=== PATIENT | female | born 1995 | race African-American/Black ===

== ENCOUNTER 2019-06-22 17:01 | Emergency (ER) | payer OTHER ==
[2019-06-22 17:08] VITALS: TEMP 98; BMI 22.6
--- NOTE | 2019-06-22 17:16 | PDOC ---
History of Present Illness - General Chief Complaint: Vaginal Bleeding Stated Complaint: VAGINAL BLEEDING Time Seen by Provider: 06/22/19 17:15 - History of Present Illness Initial Comments: 06/22/19 21:56 23 year old woman A1 with a history of sickle cell trait who presents with vaginal bleeding with out clot that started just prior to arrival. The patient reports that she is approx 10 weeks with LNMP 03/20/2019. She got her pergnancy done IVF due to her partner also being a sickle cell trait carrier. She denies any abdominal pain, nausea, vomiting, back pain or fever. SHe reports that after the initial bleeding she has some spotting. OBGYN: [facility] GENERAL/CONSTITUTIONAL: No fever or chills. No weakness. HEAD, EYES, EARS, NOSE AND THROAT: No change in vision. No ear pain or discharge. No sore throat. CARDIOVASCULAR: No chest pain or shortness of breath RESPIRATORY: No cough, wheezing, or hemoptysis. GASTROINTESTINAL: No nausea, vomiting, diarrhea or constipation. GENITOURINARY: No dysuria, frequency, or change in urination. MUSCULOSKELETAL: No joint or muscle swelling or pain. No neck or back pain. SKIN: No rash NEUROLOGIC: No headache, vertigo, loss of consciousness, or change in strength/ sensation. . PE GENERAL: Awake, alert, and fully oriented, in no acute distress HEAD: No signs of trauma, normocephalic, atraumatic EYES: EOMI, sclera anicteric, conjunctiva clear ENT: oropharynx clear without exudates. Moist mucosa NECK: Normal ROM, supple LUNGS: No distress, speaks full sentences, clear to auscultation bilaterally HEART: Regular rate and rhythm, normal S1 and S2, no murmurs, rubs or gallops, peripheral pulses normal and equal bilaterally. ABDOMEN: Soft, nontender, normoactive bowel sounds. No guarding, no rebound. No masses EXTREMITIES : Normal inspection, Normal range of motion, no edema. No clubbing or cyanosis. NEUROLOGICAL: Cranial nerves II through XII grossly intact. Normal speech, normal gait, no focal sensorimotor deficits SKIN: Warm, Dry, normal turgor, no rashes or lesions noted PELVIC: closed cervical os, blood in vaginal vault, no CMT MDM DDX including but not limited to: threatened abrotion vs complete W/U: - cbc, cmp, beta, tvus ED Course: labs wnl tvus with single viable recommend patient see OBGYN on monday, they have upcoming appointemnt with OBGYN next week informed to return to ED if OBGYN appointment cannot be made. Patient agress to plan, given strict return precuations Shirley Villa, PGY2 Emergency Medicine Past History - Past Medical History Allergies/Adverse Reactions: Allergies Allergy/AdvReac Type Severity Reaction Status Date / Time No Known Allergies Allergy Verified 06/22/19 20:19 Home Medications: Ambulatory Orders No122/Iron/Folic Acid [ Multi Tablet] 1 each PO DAILY 06/22/19 COPD: No - Suicide/Smoking/Psychosocial Hx Smoking History: Never smoked *Physical Exam - Vital Signs Last Vital Signs Temp Pulse Resp BP Pulse Ox 98 F 113 H 20 115/76 99 06/22/19 17:05 06/22/19 17:05 06/22/19 17:05 06/22/19 17:05 06/22/19 17:05 Vital Signs - Vital Signs #1 Pulse Rate: 88 ED Treatment Course - LABORATORY CBC & Chemistry Diagram: 06/22/19 18:01 06/22/19 18:01 *DC/Admit/Observation/Transfer Diagnosis at time of Disposition: Vaginal bleeding - Discharge Dispostion Disposition: HOME Condition at time of disposition: Stable Decision to Admit order: No - Referrals Referrals: Marky Ratliff MD [Primary Care Provider] - - Patient Instructions Printed Discharge Instructions: DI for Vaginal Bleeding During Additional Instructions: You were seen in the ED for complaints of vaginal bleeding in In the ED you were evaluated with labwork and imaging. Your results were showed an intrauterine aged 10 weeks 5 days with HR of 164bpm. There does not appear to be an acute need for immediate hospitalization. You are advised to follow up with your Primary Care Physician within 1 week. Please follow up with your OBGYN in 48 hours for repeat bloodwork Return to the ED immediately if you experience worsening vaginal bleeding, nausea, vomiting, abdominal pain, chest pain or shortness of breath. - Post Discharge Activity
--- NOTE | 2019-06-22 17:17 | PDOC ---
Attending Attestation - Resident Resident Name: Shirley Villa - ED Attending Attestation I have performed the following: I have examined & evaluated the patient, The case was reviewed & discussed with the resident, I agree w/resident's findings & plan, Exceptions are as noted - HPI HPI: 06/22/19 18:31 23-year-old female, g 2 P0, at 10 weeks gestation by LMP presents with vaginal bleeding. Patient denies fevers/chills/abdominal pain/nausea/vomiting. - Physicial Exam PE: 06/22/19 18:32 Patient is awake and alert, well-nourished, in no distress Normocephalic, atraumatic PERRLA, EOMI CTA RRR Abdomen soft, nontender, nondistended - Medical Decision Making 06/22/19 18:34 Patient is a 23-year-old female, , 10 weeks gestation via IVF presents with an episode of vaginal bleeding followed by vaginal spotting. Patient is hemodynamically stable. Serial abdominal exams reveal no focal tenderness. Will rule out ectopic with beta-hCG and transvaginal ultrasound. Will obtain type and screen for age status. Will reassess
[2019-06-22 18:30] LABS: BASO % 0.3 % (0-2.0); EOS % 0.6 % (0-4.5); HEMATOCRIT 40.2 % (32.4-45.2); HEMOGLOBIN 13.6 GM/dL (10.7-15.3); LYMPH % 24.2 % (8-40); MCH 29.5 pg (25.7-33.7); MCHC 33.9 g/dl (32.0-36.0); MEAN CELL VOLUME 87.1 fl (80-96); MEAN PLT VOLUME 8.5 fl (7.5-11.1); MONO % 5.8 % (3.8-10.2); NEUT % 69.1 % (42.8-82.8); PLATELET COUNT 308 K/MM3 (134-434); RBC 4.61 M/mm3 (3.60-5.2); RDW 13.9 % (11.6-15.6); WHITE BLOOD COUNT 7.2 K/mm3 (4.0-10.0)
[2019-06-22 18:52] LABS: ALBUMIN 3.7 g/dl (3.4-5.0); BILIRUBIN,TOTAL 0.2 mg/dL (0.2-1); BLOOD UREA NITROGEN 12.4 mg/dL (7-18); CALCIUM 10.1 mg/dL (8.5-10.1); CREATININE 0.6 mg/dL (0.55-1.3); TOT PROT 7.9 g/dl (6.4-8.2)
[2019-06-22 20:19] LABS: EPI CELLS 5.2 /HPF (0-5/HPF); HYALINE CASTS 2 /lpf (0-8); URINE APPEARANCE CLOUDY; URINE BACTERIA 37.1 /hpf (NEGATIVE); URINE BILIRUBIN NEGATIVE (NEGATIVE); URINE COLOR YELLOW; URINE GLUCOSE (UA) NEGATIVE (NEGATIVE); URINE KETONE 1+ (NEGATIVE); URINE LEUK ESTERASE NEGATIVE (NEGATIVE); URINE NITRITE NEGATIVE (NEGATIVE); URINE PROTEIN NEGATIVE (NEGATIVE); URINE RBC 1 /hpf (0-4); URINE UROBILINOGEN 0.2 mg/dL (0.2-1.0); URINE WBC 1 /hpf (0-5)
[2019-06-22 22:17] VITALS: BP 122/73
[2019-06-23 00:03] VITALS: PULSE 88
== END 2019-06-22 22:17 | disposition home or self-care (01) ==
LOC: JER 17:01
DX: O26.891 Other specified pregnancy related conditions, first trimester (principal); O20.8 Other hemorrhage in early pregnancy; O99.011 Anemia complicating pregnancy, first trimester; D57.3 Sickle-cell trait; Z3A.10 10 weeks gestation of pregnancy
CPT/HCPCS: 36415; 76801-TC; 80053; 81003; 84702; 85025; 86850; 86900; 86901; 99282-25

== ENCOUNTER → 2019-08-21 | Day surgery (SDC) | payer OTHER ==
--- NOTE | 2019-08-22 15:28 | PATH ---
Cytology Non-Gynecological Report Patient Name: GUANAKITO LAURENT [facility]. Rec. #: [id number] /Age/Gender: 1995 (Age: 23) / F Account: [id number] Location: RADIOLOGY INTER Taken: 08/21/2019 Received: 08/21/2019 Reported: 08/22/2019 Physicians: Blanka Frausto M.D. Specimen(s) Received LEFT LOBE THYROID FNA Clinical History Left lobe, 2.09 x 0.63 x 1.14 cm Final Diagnosis THYROID, LEFT LOBE, FINE NEEDLE ASPIRATION: SATISFACTORY FOR EVALUATION. BETHESDA CLASS II: BENIGN. CYTOLOGIC FINDINGS ARE CONSISTENT WITH A BENIGN FOLLICULAR NODULE. SMALL FOLLICULAR CELLS IN A BACKGROUND OF ABUNDANT COLLOID AND FEW MACROPHAGES PRESENT. Electronically Signed Francia Mcdonough M.D. Gross Description Received are eight direct smears, four of which are air-dried and Diff-Quik stained, and four of which are alcohol fixed and Pap stained. Also received is 20 ml of bloody formalin from which one cellblock is prepared.
== END | disposition home or self-care (01) ==
LOC: JRADIR 09:31
PROVIDERS: ATTEND Otolaryngology Facial Plastic Surgery
PROC: 0G9G3ZX Drainage of Left Thyroid Gland Lobe, Percutaneous Approach, Diagnostic (ICD-10-PCS; principal; 2019-08-21)
DX: E04.1 Nontoxic single thyroid nodule (principal)
CPT/HCPCS: 76942

== ENCOUNTER 2019-11-26 02:10 | Inpatient (IN) | payer OTHER ==
[~2019-11-26 02:10] MED LIST: ELECTROLYTE-148 SOLN 1,000 ML IV ONE
[2019-11-26] MEDS ORDERED: ELECTROLYTE-148 SOLN 1,000 ML IV SCH (04:00)
[2019-11-26] MEDS ORDERED: TERBUTALINE SULFATE 1 MG/1 ML VIAL SQ SCH (05:45)
[2019-11-26] MEDS ORDERED: TERBUTALINE SULFATE 1 MG/1 ML VIAL SQ ONE (05:46)
[2019-11-26] MEDS: TERBUTALINE SULFATE 1 MG/1 ML VIAL SQ SCH ×2 (05:50→06:30)
[2019-11-26] MEDS ORDERED: BETAMET ACET/BETAMET NA PH 30 MG/5 ML VIAL IM ONE (09:32)
--- NOTE | 2019-11-26 09:36 | PN ---
Ante-Partal Exam - Subjective Subjective: Pt came in for contractions was given terb x 2 no rom no bleeding improved with hydrations SP BPP 8/ Vital Signs: Vital Signs Temperature 98.0 F 11/26/19 08:14 Pulse Rate 120 H 11/26/19 08:14 Respiratory Rate 11/26/19 08:14 Blood Pressure 116/69 11/26/19 08:14 O2 Sat by Pulse Oximetry (%) Bleeding: No Headache: No Visual changes: No Right upper quadrant pain: No - Contractions Contractions: Yes Regularity: Irritability Monitor Mode: External - Exam during Labor Variability: Moderate Heart Rate Location: [facility] Category: I Exam: Vaginal Dilatation (cm): ft Amniotic Membrane Status: Intact Amniotic Fluid: Clear Presentation: Vertex - Intrapartum Hemorrhage Risk Risk Score: 0 Risk Level: Low Risk - Assessment/Plan Assessment/Plan: IUP at 33 week PTL BPP 8 tacycardia after terbutaline 3 hours ago Plan Admit for observation cont moonitoring celestone 12.5 mg will repeat exam regular diet
[2019-11-26] MEDS: ELECTROLYTE-148 SOLN 1,000 ML IV SCH ×2 (10:45→22:30)
[2019-11-26] MEDS ORDERED: MAGNESIUM 4GM/H20 - 4 GM/100 ML IVPB IVPB ONE (11:01)
[2019-11-26] MEDS ORDERED: AMPICILLIN - 2 GM in SODIUM CHLORIDE 100 ML IVPB ONE (11:01)
--- NOTE | 2019-11-26 11:05 | HP ---
Past Medical History - Primary Care Physician PCP:: Makeda Joe - Admission Chief Complaint: labor History of Present Illness: 24 yo EDC EGA 33 week admitted for labor no rom no bleeding no abd pian Limitations to Obtaining History: No Limitations - Past Medical History ...: 1 ...Para: 0 ...Term: 0 ...: 0 ...Spon : 0 ...Induced : 0 ...LMP: 03/20/19 ... Weeks Gestation by Dates: 33.1 ...EDC by Dates: 01/14/20 - Past Surgical History Past Surgical History: Yes: None Hx Myomectomy: No Hx Transabdominal Cerclage: No - Smoking History Smoking history: Never smoked - Alcohol/Substance Use Hx Alcohol Use: No History of Substance Use: reports: None - Social History Usual Living Arrangement: Yes: With Spouse History of Recent Travel: No Home Medications - Allergies Allergies/Adverse Reactions: Allergies Allergy/AdvReac Type Severity Reaction Status Date / Time No Known Allergies Allergy Verified 11/26/19 05:01 - Home Medications Home Medications: Ambulatory Orders Vitamins (Sjr) - 1 tab PO DAILY 11/26/19 Review of Systems - Review of Systems Constitutional: reports: No Symptoms Eyes: reports: No Symptoms HENT: reports: No Symptoms Neck: reports: No Symptoms Cardiovascular: reports: No Symptoms Respiratory: reports: No Symptoms Gastrointestinal: reports: Abdominal Pain Genitourinary: reports: No Symptoms Breasts: reports: No Symptoms Reported Musculoskeletal: reports: No Symptoms Integumentary: reports: No Symptoms Neurological: reports: No Symptoms Endocrine: reports: No Symptoms Hematology/Lymphatic: reports: No Symptoms Psychiatric: reports: No Symptoms Physical Exam - Maternity Vital Signs: Vital Signs Temperature 98.0 F 11/26/19 09:25 Pulse Rate 111 H 11/26/19 09:25 Respiratory Rate 20 11/26/19 09:25 Blood Pressure 105/64 11/26/19 09:25 O2 Sat by Pulse Oximetry (%) Problem List - Problems (1) labor in second trimester with delivery in third trimester Code(s): O60.13X0 - LABOR SECOND TRI W DELIVERY THIRD TRI, UNSP Assessment/Plan labor 33 weeks Plan IV Antibiotic EFM Celestone in 24 hours IV hydration [id number]
[2019-11-26] MEDS ORDERED: MAGNESIUM 4GM/H20 - 4 GM/100 ML IVPB IVPB SCH (11:15)
[2019-11-26] MEDS: MAGNESIUM SULFATE 20GM/500ML - 20 GM/500 ML INFUS.BAG IVPB SCH ×2 (11:35→22:30)
[2019-11-26 11:39] LABS: BASO % 0.2 % (0-2.0); EOS % 0.1 % (0-4.5); HEMATOCRIT 32.6 % (32.4-45.2); HEMOGLOBIN 11.2 GM/dL (10.7-15.3); LYMPH % 11.9 % (8-40); MCH 31.8 pg (25.7-33.7); MCHC 34.3 g/dl (32.0-36.0); MEAN CELL VOLUME 92.7 fl (80-96); MEAN PLT VOLUME 8.9 fl (7.5-11.1); MONO % 3.5 % (3.8-10.2); NEUT % 84.3 % (42.8-82.8); PLATELET COUNT 229 K/MM3 (134-434); RBC 3.52 M/mm3 (3.60-5.2); WHITE BLOOD COUNT 8.3 K/mm3 (4.0-10.0)
[2019-11-26 11:50] LABS: INR 0.94 (0.83-1.09); PROTHROMBIN TIME (PATIENT) 11.1 SEC (9.7-13.0)
[2019-11-26] MEDS ORDERED: AMPICILLIN SODIUM 2 GM VIAL ONE (11:50)
[2019-11-26 11:52] LABS: ACTIVATED PTT 29.9 SECONDS (25.2-36.5)
[2019-11-26 12:01] LABS: CALCIUM 8.5 mg/dL (8.5-10.1); CREATININE 0.6 mg/dL (0.55-1.3); MAGNESIUM 3.5 mg/dL (1.8-2.4); POTASSIUM 3.8 mmol/L (3.5-5.1)
[2019-11-26 12:13] LABS: BLOOD UREA NITROGEN 2.8 mg/dL (7-18)
[2019-11-26 12:20] VITALS: BMI 31.1
[2019-11-26 13:37] LABS: URINE APPEARANCE CLOUDY; URINE BILIRUBIN NEGATIVE (NEGATIVE); URINE COLOR YELLOW; URINE GLUCOSE (UA) NEGATIVE (NEGATIVE); URINE KETONE NEGATIVE (NEGATIVE); URINE LEUK ESTERASE NEGATIVE (NEGATIVE); URINE NITRITE NEGATIVE (NEGATIVE); URINE PROTEIN NEGATIVE (NEGATIVE); URINE UROBILINOGEN 0.2 mg/dL (0.2-1.0)
[2019-11-26] MEDS ORDERED: AMPICILLIN SODIUM 1 GM VIAL ONE ×2 (15:26→19:46)
[2019-11-26] MEDS ORDERED: SODIUM CHLORIDE 100 ML IVPB ONE (15:26)
[2019-11-26] MEDS: AMPICILLIN - 1 GM in SODIUM CHLORIDE 100 ML IVPB SCH ×2 (15:48→19:50)
[2019-11-26] MEDS ORDERED: MAGNESIUM SULFATE 20GM/500ML - 20 GM/500 ML INFUS.BAG ONE (22:27)
[2019-11-27] MEDS ORDERED: AMPICILLIN SODIUM 1 GM VIAL ONE ×3 (00:14→08:25)
[2019-11-27] MEDS: AMPICILLIN - 1 GM in SODIUM CHLORIDE 100 ML IVPB SCH ×4 (00:15→17:29)
--- NOTE | 2019-11-27 07:41 | PN ---
Progress Note (short form) - Note Progress Note: 24 yo EDC EGA 33 week admitted for labor. She's on Magnesium sulfate and has received one dose of Betamethasone. She's not in discomfort. FHR : Reassuring [place] : + contractions VE : No cervical change A/ P : 33 weeks gestation contractions Continue Magnesium sulfate Second dose of Betamethasone pending. Continue observation F/U Magnesium level
[2019-11-27] MEDS ORDERED: BETAMET ACET/BETAMET NA PH 30 MG/5 ML VIAL IM ONE (09:45)
[2019-11-27] MEDS ORDERED: BETAMET ACET/BETAMET NA PH 30 MG/5 ML VIAL ONE (09:55)
[2019-11-27] MEDS ORDERED: MAGNESIUM SULFATE 20GM/500ML - 20 GM/500 ML INFUS.BAG ONE (10:15)
[2019-11-27] MEDS: MAGNESIUM SULFATE 20GM/500ML - 20 GM/500 ML INFUS.BAG IVPB SCH (10:30)
--- NOTE | 2019-11-27 10:52 | PN ---
Ante-Partal Exam - Subjective Vital Signs: Vital Signs Temperature 98.3 F 11/27/19 09:00 Pulse Rate 90 11/27/19 09:00 Respiratory Rate 18 11/27/19 09:00 Blood Pressure 108/63 11/27/19 09:00 O2 Sat by Pulse Oximetry (%) Bleeding: No Headache: No Visual changes: No Right upper quadrant pain: No - Contractions Contractions: Yes Regularity: Irregular - Exam during Labor Category: I - Intrapartum Hemorrhage Risk Risk Score: 0 Risk Level: Low Risk - Assessment/Plan Assessment/Plan: IUP at 33 wek contraction SP mgso4 Plan DC mgso4 DC amp observe in LD then transfer to Floor for observation
[2019-11-27] MEDS: ELECTROLYTE-148 SOLN 1,000 ML IV SCH (13:11)
--- NOTE | 2019-11-28 09:05 | PN ---
Ante-Partal Exam - Subjective Subjective: Pt found lying in bed doing well no rom no bleeding no pain efm irritability Vital Signs: Vital Signs Temperature 98.0 F 11/28/19 08:06 Pulse Rate 78 11/28/19 08:06 Respiratory Rate 20 11/28/19 08:06 Blood Pressure 108/60 11/28/19 08:06 O2 Sat by Pulse Oximetry (%) Bleeding: No Headache: No Visual changes: No Right upper quadrant pain: No - Contractions Contractions: Yes Regularity: Irritability Intensity: Unaware Monitor Mode: External - Exam during Labor Variability: Moderate Heart Rate Location: [facility] Monitor Decelerations: None Exam: Vaginal (checked earlier and found to be closed) Amniotic Membrane Status: Intact Presentation: Vertex - Assessment/Plan Assessment/Plan: contractions iup at 33 weeks IVF Plan transfer to antepartum if no change
[2019-11-28] MEDS ORDERED: ONDANSETRON 4 MG/2 ML VIAL IVPUSH PRN (09:32)
[2019-11-28] MEDS: ELECTROLYTE-148 SOLN 1,000 ML IV SCH (09:40)
[2019-11-28] MEDS ORDERED: ACETAMINOPHEN 1000 MG/100 ML VIAL (NON FORMULARY) IVPB ONE (09:40)
--- NOTE | 2019-11-28 09:41 | PN ---
Ante-Partal Exam - Subjective Subjective: Pt with chest pain no SOB no leg pain Vital Signs: Vital Signs Temperature 98.0 F 11/28/19 08:06 Pulse Rate 81 11/28/19 08:50 Respiratory Rate 20 11/28/19 08:50 Blood Pressure 115/60 11/28/19 08:50 O2 Sat by Pulse Oximetry (%) 95 11/28/19 09:00 Bleeding: No Headache: No Visual changes: No Right upper quadrant pain: No - Contractions Contractions: Yes Regularity: Irritability Monitor Mode: External - Exam during Labor Variability: Moderate Category: I Monitor Decelerations: None Amniotic Membrane Status: Intact - Intrapartum Hemorrhage Risk Risk Score: 0 Risk Level: Low Risk - Assessment/Plan Assessment/Plan: IUP at 33 weeks contractions mid sternal chest pain with no sOB Plan Tylenol IVF IVF O2 cbc Chem EKG will call hospitalist if not improved
[2019-11-28 11:08] LABS: BASO % 0.3 % (0-2.0); HEMOGLOBIN 11.1 GM/dL (10.7-15.3); LYMPH % 10.1 % (8-40); MCH 31.3 pg (25.7-33.7); MCHC 33.6 g/dl (32.0-36.0); MEAN CELL VOLUME 93.4 fl (80-96); MEAN PLT VOLUME 9.2 fl (7.5-11.1); MONO % 6.1 % (3.8-10.2); NEUT % 83.5 % (42.8-82.8); PLATELET COUNT 228 K/MM3 (134-434); RBC 3.53 M/mm3 (3.60-5.2); WHITE BLOOD COUNT 12.8 K/mm3 (4.0-10.0)
[2019-11-28 11:34] LABS: BLOOD UREA NITROGEN 7.4 mg/dL (7-18); CALCIUM 8.9 mg/dL (8.5-10.1); CREATININE 0.6 mg/dL (0.55-1.3)
--- NOTE | 2019-11-28 13:41 | EKG ---
Test Reason : Blood Pressure : / mmHG Vent. Rate : 074 BPM Atrial Rate : 074 BPM P-R Int : 126 ms QRS Dur : 086 ms QT Int : 382 ms P-R-T Axes : 036 053 018 degrees QTc Int : 424 ms NORMAL SINUS RHYTHM WITH SINUS ARRHYTHMIA NORMAL ECG NO PREVIOUS ECGS AVAILABLE Confirmed by GLENNY FIERRO MD ([id number]) on 11/28/2019 1:41:04 PM Referred By: Confirmed By:GLENNY FIERRO MD
[2019-11-29] MEDS: ELECTROLYTE-148 SOLN 1,000 ML IV SCH (02:45)
[2019-11-29 14:04] VITALS: BP 106/59; PULSE 91; TEMP 98.1
--- NOTE | 2019-11-29 14:36 | DS ---
Physical Exam-[employer] Vital Signs: Vital Signs Temperature 98.1 F 11/29/19 14:00 Pulse Rate 91 H 11/29/19 14:00 Respiratory Rate 20 11/29/19 14:00 Blood Pressure 106/59 L 11/29/19 14:00 O2 Sat by Pulse Oximetry (%) 96 11/28/19 11:35 Constitutional: Yes: Well Nourished Gastrointestinal: Yes: WNL, Soft, Other (gravid) Breast(s): Yes: WNL Musculoskeletal: Yes: WNL, Muscle Weakness Edema: No Neurological: Yes: WNL, Alert, Oriented Labs: CBC, BMP 11/28/19 10:35 11/28/19 10:35 Delivery, Single - [place] Feeding Plan Initial Plan: Exclusive throughout hospitalization Discharge Summary Problems reviewed: Yes Reason For Visit: PRE-TERM LABOR Current Active Problems labor in second trimester with delivery in third trimester ( Acute) Procedures: Principal: IV hydration. steroids. fibronectin positive Hospital Course: labor Condition: Good - Instructions Diet, Activity, Other Instructions: OB Triage Discharge Instructions Dr Joe and Dr Andino IMPORTANT: Please follow ALL basic instructions AND any other instructions that have been marked with an X: Hydration and Elimination: _X_ Drink at least eight 8-ounce glasses of water a day _X_ Empty bladder frequently. Be sure to go to the bathroom when you first feel the urge. Don't wait! Movement Counts: _X_ Count your baby's kicks once a day Instructions: After mealtime, lay down in a quiet room (e.g., TV and radio off) . Over two (2) hours, count the number of times your baby moves. Once you have counted 10 movements, you are donel If you did not count 10 movements in two (2) hours, call your bar gauger and lubricator tender. Notify your doctor for any of the following signs/symptoms: _X_ Less than 10 movements over two (2) hours _X_ Constant firm uterus (contraction that doesn't go away) _X_ Water gushing or leaking from the vagina; report amount, color, and odor to MD _X_ Increased vaginal discharge and/or odorous discharge _X_ Vaginal bleeding: spotting, flow, or clots _X_ Unrelieved indigestion, nausea, or vomiting _X_ Diarrhea (frequent loose/runny stools) _X_ Unrelieved headache _X_ Vision changes: blurriness, spots, flashes of light _X_ Mental confusion, or seizure _X_ Shortness of breath or difficulty breathing [ ] Onset of contractions: _ in an hour with or without pain [ ] Low back pain or lower abdominal pain [ ] Abdominal tenderness [ ] Increased swelling of your face or hands [ ] Signs of bladder infection: Urgency, increased urination frequency, pain and/or burning when urinating [ ] Signs of low blood sugar: increased urinatoin, excessive thirst, increased appetite [ ] Blood sugar less than 60 mg/ dl or greater than 160 mg/ dl by glucometer Referrals: Makeda Joe MD [Staff Physician] - Disposition: HOME - Home Medications Comprehensive Discharge Medication List: Ambulatory Orders Vitamins (Sjr) - 1 tab PO DAILY 11/26/19
== END 2019-11-29 16:55 | disposition home or self-care (01) | DRG 833 ==
LOC: JDEL 02:10 → JLDR 11:00 → J3W 11-27 13:32 → JLDR 11-28 07:09 → J3W 11-28 12:55
PROVIDERS: ADMIT Obstetrics & Gynecology; ATTEND Obstetrics & Gynecology
DX: O60.03 Preterm labor without delivery, third trimester (principal); Z3A.33 33 weeks gestation of pregnancy
CPT/HCPCS: 36415; 80048; 81003; 82731; 83735; 85025; 85610; 85730; 86593; 86850; 86900; 86901; 87086; 93005; 93010; 96372; J0131

== ENCOUNTER 2022-03-20 19:57 | Inpatient (IN) | payer OTHER ==
[2022-03-20] MEDS: DEXTROSE 5%-LACTATED RINGERS 1,000 ML IV SCH (20:30)
[2022-03-20] MEDS ORDERED: DINOPROSTONE 10 MG VAGINAL SUPPOSITORY VG ONE (21:00)
[2022-03-20 21:44] VITALS: BMI 32.7
[2022-03-21] MEDS ORDERED: AMPICILLIN - 2 GM in SODIUM CHLORIDE 100 ML IVPB ONE (03:00)
[2022-03-21] MEDS ORDERED: AMPICILLIN SODIUM 2 GM VIAL ONE (03:05)
[2022-03-21] MEDS: DEXTROSE 5%-LACTATED RINGERS 1,000 ML IV SCH (05:30)
[2022-03-21] MEDS ORDERED: AMPICILLIN SODIUM 1 GM VIAL ONE ×2 (06:20→10:41)
[2022-03-21] MEDS: AMPICILLIN - 1 GM in SODIUM CHLORIDE 100 ML IVPB SCH ×3 (06:37→20:02)
[2022-03-21] MEDS ORDERED: BUTORPHANOL TARTRATE 2 MG/ML VIAL IVPB PRN (08:17)
[2022-03-21] MEDS ORDERED: OXYTOCIN 30 UNITS in 0.9% NS 30 UNIT/500 ML INFUS.BAG IVPB SCH (08:30)
[2022-03-21] MEDS ORDERED: ELECTROLYTE-148 SOLN 1,000 ML IV SCH (08:30)
[2022-03-21] MEDS ORDERED: FENTANYL/BUPIVACAINE/NS/PF - PCEA - 50 ML DISP.SYRIN EP ONE (09:22)
[2022-03-21] MEDS ORDERED: BUPIVACAINE HCL/PF 0.25% (2.5MG/ML) 10 ML VIAL ONE (09:28)
[2022-03-21] MEDS ORDERED: NALOXONE HCL 0.4 MG/ML VIAL IVPUSH PRN (10:09)
[2022-03-21] MEDS ORDERED: FENTANYL/BUPIVACAINE/NS/PF - PCEA - 50 ML DISP.SYRIN EP SCH (10:15)
[2022-03-21] MEDS ORDERED: OXYTOCIN 20 UNITS in 0.9% NS 20 UNIT/1,000 ML INFUS.BAG IV ONE (11:07)
[2022-03-21 12:08] LABS: CORD BASE EXCESS -4.8 mmol/L (0-2); CORD PCO2 41.5 mmHg (30-78); CORD pH 7.322 (7.14-7.44)
[2022-03-21] MEDS ORDERED: ACETAMINOPHEN 325 MG TABLET (FP) PO PRN (12:09)
[2022-03-21] MEDS ORDERED: oxyCODONE HCL 5 MG TABLET PO PRN (12:09)
[2022-03-21] MEDS ORDERED: BENZOCAINE 28 GM HEMORRHOIDAL OINTMENT TP PRN (12:09)
[2022-03-21] MEDS ORDERED: METHYLERGONOVINE MALEATE 0.2 MG/1 ML AMP IM PRN (12:09)
[2022-03-21] MEDS ORDERED: WITCH HAZEL 50% (TUCKS) 40 PAD/JAR PAD TP PRN (12:09)
[2022-03-21] MEDS ORDERED: BENZOCAINE 20% 57 GM BOTTLE TP PRN (12:09)
[2022-03-21] MEDS ORDERED: BISACODYL 10 MG SUPP.RECT RC PRN (12:09)
[2022-03-21] MEDS ORDERED: OXYTOCIN 20 UNITS in 0.9% NS 20 UNIT/1,000 ML INFUS.BAG IV SCH (12:15)
[2022-03-21] MEDS: IBUPROFEN 600 MG TABLET (FP) PO PRN (15:55)
[2022-03-21] MEDS: FERROUS SO4 325 MG TABLET (FP) PO SCH (17:27)
[2022-03-22] MEDS: IBUPROFEN 600 MG TABLET (FP) PO PRN ×2 (00:30→18:35)
[2022-03-22 08:54] LABS: BASO % 0.5 % (0-2.0); EOS % 0.5 % (0-4.5); HEMATOCRIT 35.5 % (32.4-45.2); HEMOGLOBIN 11.7 GM/dL (10.7-15.3); MCH 28.7 pg (25.7-33.7); MCHC 33.1 g/dl (32.0-36.0); MEAN CELL VOLUME 86.8 fl (80-96); MEAN PLT VOLUME 9.6 fl (7.5-11.1); MONO % 7.4 % (3.8-10.2); NEUT % 71.6 % (42.8-82.8); PLATELET COUNT 225 10^3/uL (134-434); RBC 4.09 M/mm3 (3.60-5.2); RDW 15.8 % (11.6-15.6); WHITE BLOOD COUNT 7.8 K/mm3 (4.0-10.0)
[2022-03-22] MEDS: PRENATAL VITAMINS W/ FOLIC ACID TABLET (FP) PO SCH (09:53)
[2022-03-22] MEDS: FERROUS SO4 325 MG TABLET (FP) PO SCH ×3 (09:53→18:35)
[2022-03-22] MEDS ORDERED: SENNOSIDES/DOCUSATE COMBO (SENNA PLUS) TABLET (UD) PO PRN (22:00)
[2022-03-23] MEDS: FERROUS SO4 325 MG TABLET (FP) PO SCH ×2 (08:21→12:05)
[2022-03-23] MEDS: PRENATAL VITAMINS W/ FOLIC ACID TABLET (FP) PO SCH (09:10)
[2022-03-23] MEDS: IBUPROFEN 600 MG TABLET (FP) PO PRN (12:03)
[2022-03-23 14:04] VITALS: BP 116/76; PULSE 94; TEMP 98.2
== END 2022-03-23 16:00 | disposition home or self-care (01) | DRG 807 ==
LOC: JLDR 19:57 → J3W 03-21 13:00
PROVIDERS: ADMIT Obstetrics & Gynecology; ATTEND Obstetrics & Gynecology
PROC: 10E0XZZ Delivery of Products of Conception, External Approach (ICD-10-PCS; principal; 2022-03-21)
PROC: 3E0P7VZ Introduction of Hormone into Female Reproductive, Via Natural or Artificial Opening (ICD-10-PCS; 2022-03-21)
DX: O80 Encounter for full-term uncomplicated delivery (principal); Z37.0 Single live birth; Z3A.39 39 weeks gestation of pregnancy
CPT/HCPCS: 36415; 36600; 59409; 82803; 85025

== ENCOUNTER 2022-09-29 04:00 | Day surgery (SDC) | payer OTHER ==
[2022-09-27 10:58] VITALS: BMI 29.2
[2022-09-29] MEDS ORDERED: LIDOCAINE HCL/PF 2% SDV 5ML VIAL ONE (12:50)
[2022-09-29] MEDS ORDERED: FENTANYL CITRATE/PF 50 MCG/ML VIAL ONE ×5 (12:50→16:08)
[2022-09-29] MEDS ORDERED: PROPOFOL 40 ML ONE (12:50)
[2022-09-29] MEDS ORDERED: ROCURONIUM BROMIDE 50 MG/5 ML SYRINGE ONE (12:51)
[2022-09-29] MEDS ORDERED: MIDAZOLAM HCL 2 MG/2 ML SINGLE DOSE VIAL ONE (12:51)
[2022-09-29] MEDS ORDERED: MINERAL OIL/PETROLATUM,WHITE 3.5 GM TUBE ONE (12:53)
[2022-09-29] MEDS ORDERED: DESFLURANE GAS 240 ML BOTTLE IH ONE (12:53)
[2022-09-29] MEDS ORDERED: DEXAMETHASONE SOD PHOSPHATE 4 MG/1 ML VIAL ONE (13:16)
[2022-09-29] MEDS ORDERED: ONDANSETRON 4 MG/2 ML VIAL ONE (13:16)
[2022-09-29] MEDS ORDERED: ceFAZolin SODIUM 1 GM VIAL IVPB ONE (13:24)
[2022-09-29] MEDS ORDERED: ceFAZolin SODIUM 1 GM VIAL ONE (13:24)
[2022-09-29] MEDS ORDERED: BUPIVACAINE HCL/PF 0.5% (5MG/ML) 10 ML VIAL IJ ONE (13:38)
[2022-09-29] MEDS ORDERED: IBUPROFEN 800 MG/8 ML IJ IVPB PRN (14:57)
[2022-09-29] MEDS ORDERED: ONDANSETRON 4 MG/2 ML VIAL IVPUSH PRN (14:57)
[2022-09-29] MEDS ORDERED: oxyCODONE HCL 5 MG TABLET PO PRN (14:57)
[2022-09-29] MEDS ORDERED: ACETAMINOPHEN 1000 MG/100 ML BAG IVPB ONE (14:58)
[2022-09-29] MEDS ORDERED: LACTATED RINGERS SOLUTION 1,000 ML IV SCH ×2 (15:00→15:15)
[2022-09-29 17:18] VITALS: RESP 18
[2022-09-29 18:46] VITALS: TEMP 97.9
[2022-09-29 18:49] VITALS: BP 119/78; PULSE 82
== END 2022-09-29 18:38 | disposition home or self-care (01) ==
LOC: JASU-SURG 04:00
PROVIDERS: ATTEND Surgery
PROC: 0GTG0ZZ Resection of Left Thyroid Gland Lobe, Open Approach (ICD-10-PCS; 2022-09-29)
PROC: 0GBM0ZZ Excision of Left Superior Parathyroid Gland, Open Approach (ICD-10-PCS; 2022-09-29)
PROC: 0GTJ0ZZ Resection of Thyroid Gland Isthmus, Open Approach (ICD-10-PCS; principal; 2022-09-29 12:30)
DX: C73 Malignant neoplasm of thyroid gland (principal)
CPT/HCPCS: 81025; 88305-TC; 88307-TC; 94760

== ENCOUNTER 2024-07-28 22:17 | Emergency (ER) | payer OTHER ==
[2024-07-28 22:22] VITALS: BP 133/78; PULSE 89; RESP 16; TEMP 98.6; BMI 31.1
[2024-07-29 00:36] LABS: BASO % 0.7 % (0-2.0); EOS % 0.7 % (0-4.5); HEMATOCRIT 37.7 % (32.4-45.2); HEMOGLOBIN 12.6 GM/dL (10.7-15.3); LYMPH % 22.1 % (8-40); MCH 28.2 pg (25.7-33.7); MCHC 33.4 g/dl (32.0-36.0); MEAN CELL VOLUME 84.5 fl (80-96); MEAN PLT VOLUME 8.6 fl (7.5-11.1); MONO % 5.3 % (3.8-10.2); NEUT % 71.2 % (42.8-82.8); PLATELET COUNT 260 10^3/uL (134-434); RBC 4.47 M/mm3 (3.60-5.2); RDW 14.7 % (11.6-15.6)
[2024-07-29 01:01] LABS: POTASSIUM 4.4 mmol/L (3.5-5.1)
[2024-07-29 01:03] LABS: CALCIUM 9.3 mg/dL (8.5-10.1)
[2024-07-29 01:04] LABS: ALBUMIN 3.5 g/dl (3.4-5.0); BLOOD UREA NITROGEN 15.5 mg/dL (7-18)
[2024-07-29 01:07] LABS: CREATININE 0.7 mg/dL (0.55-1.3)
[2024-07-29 01:08] LABS: BILIRUBIN,TOTAL 0.4 mg/dL (0.2-1); TOT PROT 7.5 g/dl (6.4-8.2)
[2024-07-29 01:59] LABS: HIV INTERPRETATION NEGATIVE (NEGATIVE)
[2024-07-29] MEDS ORDERED: morphine SULFATE 4 MG/ML VIAL ONE (02:23)
[2024-07-29] MEDS ORDERED: ACETAMINOPHEN INJECTION 100 ML ONE (02:24)
[2024-07-29] MEDS: morphine CARPU-JECT 4 MG/1 ML DISP.SYRIN IVPUSH ONE (02:31)
[2024-07-29] MEDS: ACETAMINOPHEN 1000 MG/100 ML BAG IVPB ONE (02:31)
== END 2024-07-29 06:15 | disposition home or self-care (01) ==
LOC: JER 22:17
PROC: 3E033NZ Introduction of Analgesics, Hypnotics, Sedatives into Peripheral Vein, Percutaneous Approach (ICD-10-PCS; principal; 2024-07-29)
DX: R10.11 Right upper quadrant pain (principal); R10.13 Epigastric pain
CPT/HCPCS: 36415; 74177-TC; 76705-TC; 80053; 83690; 84703; 85025; 86803; 87389; 99285-25; J0131; Q9967